=== PATIENT | female | born 1965 | race Caucasian/White ===

== ENCOUNTER 2019-05-01 10:06 | Day surgery (SDC) | payer OTHER ==
[2019-05-01] MEDS ORDERED: PROPOFOL 10 MG/ML VIAL IV ONE (10:07)
[2019-05-01] MEDS ORDERED: LIDOCAINE 2% MDV (20MG/ML) 20ML VIAL IV ONE (10:07)
--- NOTE | 2019-05-02 11:10 | Operative Note ---
OPERATION: COLONOSCOPY to the cecum with cold biopsy forceps polypectomy x1. INDICATION: Colorectal cancer screening. ANESTHESIA: Intravenous sedation was administered by the department of anesthesiology and included Diprivan titrated to effect. PROCEDURE: Following informed consent from this alert individual including a discussion of the risks and benefits of the procedure and an opportunity for the patient to ask questions, the patient was in the left lateral decubitus position. A digital rectal examination was performed. No abnormalities were noted. Following this, the Olympus [id number] video colonoscope was inserted into the rectum without resistance. The rectal mucosa had a normal appearance with normal folds and distensibility. The colonoscope was then farther advanced up through the bowel to the level of the cecum without much difficulty. Throughout the bowel the mucosa appeared normal, the folds were normal, and the bowel was fairly well distensible. There were scattered diverticula noted throughout the sigmoid colon. The cecum was defined by noting the appendiceal orifice and ileocecal valve. Retroflexion was accomplished in the cecum and failed to demonstrate changes. Overall, the colon preparation was good. From the base of the cecum, the colonoscope was slowly withdrawn. Again diverticulosis was noted in the sigmoid colon. There was also a diminutive 3 mm polyp noted in the sigmoid colon removed with application of cold biopsy forceps. Retroflexion in the rectum was endoscopically unremarkable. The instrument was straightened and withdrawn. The patient tolerated the procedure well and was returned to the recovery area in stable condition. IMPRESSION: 1. A 3 mm sigmoid colon polyp removed with biopsy forceps. 2. Diverticulosis in the sigmoid colon. RECOMMENDATIONS: Further recommendations will be forthcoming pending results of pathology obtained today. The patient will also follow up with primary care. As always, thank you for allowing me to participate in the care of your patient. PAYAM
== END 2019-05-01 12:06 | disposition home or self-care (01) ==
LOC: HOP 10:06
PROVIDERS: ATTEND Internal Medicine Gastroenterology
DX: Z12.11 Encounter for screening for malignant neoplasm of colon (principal); K63.5 Polyp of colon; K57.30 Diverticulosis of large intestine without perforation or abscess without bleeding; I10 Essential (primary) hypertension